=== PATIENT | female | born 1960 | race Caucasian/White ===

== ENCOUNTER 2025-01-07 09:24 | Outpatient (CLI) | payer MEDICARE, OTHER, SELFPAY ==
--- NOTE | 2025-01-07 09:15 | DI.RAD_ITS ---
Exam(s) XR HIP LT COMPLETE AP PELVIS EXAM: XR HIP LT COMPLETE AP PELVIS CLINICAL HISTORY: left hip pain. TECHNIQUE: 2D digital imaging was performed. COMPARISON: No exams were available for comparison FINDINGS: Two views No evidence of pelvic nor hip fracture and there is no hip joint space narrowing. Additional frog lateral view of the left hip reveals no joint space narrowing. There is no evidence of avascular necrosis of the hips. Bone density normal. No osseous lesions. There is evidence of previous bilateral inguinal hernia surgery. IMPRESSION: No acute osseous findings in the pelvis and hips. Previous bilateral inguinal hernia surgery. DATA REPOSITORY: RADIATION DOSE DELIVERED:
--- NOTE | 2025-01-07 09:30 | DI.RAD_ITS ---
Exam(s) XR LUMBAR SPINE AP, LAT EXAM: XR LUMBAR SPINE AP, LAT CLINICAL HISTORY: lumbar spine pain. TECHNIQUE: 2D digital imaging was performed. Three views. COMPARISON: No exams were available for comparison FINDINGS: BONES: No fracture or destructive lesion. Vertebral body heights are maintained. There is facet joint hypertrophy from L2-3 through L5-S1. . DISKS: Intervertebral disc spaces are maintained. ALIGNMENT: Lumbar spinal alignment is within normal limits. SOFT TISSUE: Normal. IMPRESSION: No significant disc space narrowing. Mild to moderate facet degenerative changes. DATA REPOSITORY: RADIATION DOSE DELIVERED:
== END 2025-01-07 09:25 | disposition home or self-care (01) ==
PROVIDERS: PCP General Practice; Referring Provider General Practice; Visit Provider Student in an Organized Health Care Education/Training Program
DX: M25.552 Pain in left hip (principal); M54.50 Low back pain, unspecified; M70.62 Trochanteric bursitis, left hip; R29.898 Other symptoms and signs involving the musculoskeletal system
CPT/HCPCS: 99203; 72100; 73502

== ENCOUNTER 2025-02-02 02:14 | Outpatient (CLI) | payer MEDICARE, OTHER, SELFPAY ==
--- NOTE | 2025-02-02 07:15 | DI.MRI_ITS ---
Exam(s) MR LOWER JOINT LT WO EXAM: MR LOWER JOINT LT WO CLINICAL HISTORY: LEFT HIP PAIN, WEAKNESS LT LOWER EXTREMITY, TROCHANTERIC BURSITIS TECHNIQUE: Multiplanar multisequence MRI of the hip was performed. COMPARISON: No exams were available for comparison FINDINGS: MARROW:There is no evidence of fracture, bone contusion, nor avascular necrosis. There are no significant osseous lesions.There is no significant osseous excrescence at the femoral head-neck junction to suggest the presence of cam- type BLADE. EFFUSION: There is no significant hip joint effusion. BURSAE: There is no evidence of trochanteric bursitis. There is no evidence of iliopsoas bursitis. HIP JOINT SPACE: No obvious chondral defects.There is no hypertrophy of the ligamentum teres nor intraosseous signal abnormality at the fovea centralis. LABRUM: No evidence of obvious labral tear on this non arthrogram study.. TENDONS: There is significant insertional tendinitis signal of the gluteus medius tendon. There is no distinct fluid collection to suggest simultaneous trochanteric bursitis. ISCHIAL TUBEROSITY/HAMSTRING: There is no abnormal intraosseous signal in the ipsilateral ischial tuberosity nor tear of the common hamstrings tendon attachment site at this level. OTHER: There is no abnormal intramuscular signal within the quadratus femoris to suggest the presence of impingement syndrome at this level. IMPRESSION: 1. There is insertional gluteal tendinitis signal evident within the left gluteus medius tendon consistent with gluteal tendinitis. There is no full- thickness tear. Also no well-defined trochanteric bursitis. Please note that recent therapeutic injection into this region may result in similar signal abnormality. 2. No evidence of stress fracture or avascular necrosis nor hip joint effusion. 3. Minimal if any significant degenerative osteoarthritic changes in the hip. No significant hip joint effusion. DATA REPOSITORY:
--- NOTE | 2025-02-02 17:38 | DI.VRAD_ITS ---
PROCEDURE INFORMATION: Exam: MR Left Lower Extremity Joint Without Contrast; Hip Exam date and time: 02/02/2025 10:58 AM Age: 64 years old Clinical indication: Other: Left hip pain, weakness lt lower extremity, trochanteric bursitis TECHNIQUE: Imaging protocol: Magnetic resonance imaging of the left lower extremity joint without contrast. Exam focused on the hip. Total images: 530 COMPARISON: CR XR HIP LT COMPLETE AP PELVIS 01/07/2025 9:23 AM FINDINGS: Bones/joints: No bone marrow edema. No hip effusion. No AVN. Labrum: No tear. Soft tissues: Mild gluteal tendon insertional edema left greater trochanter without fluid collection. Reproductive: Hysterectomy. IMPRESSION: Mild left greater trochanteric related tendinitis. No bursitis. Dictated and Authenticated by: Felipe Segovia MD. Orderin Amara Quijano MD
== END 2025-02-02 02:34 ==
LOC: DI 02:24
PROVIDERS: PCP General Practice; Visit Provider Student in an Organized Health Care Education/Training Program
DX: R29.898 Other symptoms and signs involving the musculoskeletal system (principal); M70.62 Trochanteric bursitis, left hip
CPT/HCPCS: 73721

== ENCOUNTER → 2025-02-10 14:11 | Outpatient (BNVA) | payer MEDICARE, OTHER, SELFPAY | PROVIDERS: PCP General Practice; Referring Provider General Practice; Visit Provider Student in an Organized Health Care Education/Training Program | DX: M70.62 Trochanteric bursitis, left hip (principal); R29.898 Other symptoms and signs involving the musculoskeletal system; M54.50 Low back pain, unspecified | CPT/HCPCS: 99213; 20610; J1010 ==